=== PATIENT | female | born 1995 | race African-American/Black ===

== ENCOUNTER → 2019-09-25 | Emergency (ER) | payer SELFPAY ==
[~2019-09-25] VITALS: Ht 165.1 cm; Wt 81.8 kg
[~2019-09-25] MED LIST: ANTIBIOTIC; IBUPROFEN600 MG PO; NIFEDIPINE ER60 MG PO; NORMODYNE / TR100 MG PO; ONDANSETRON4 MG/2 M3 PO; PERCOCET 5-3251 TAB PO; PHENERGAN25 M1 PO; PRENATAL COMPLE1 TAB PO
[2019-09-25 15:16] VITALS: BP 114/76; Ht 165.1 cm; Wt 81.8 kg
[2019-09-25 15:42] LABS: BASOPHILS 0.3 % (0-2); EOSINOPHILS 1.3 % (0-7); HEMATOCRIT 33.2 % (36.0-48.0); HEMOGLOBIN 11.5 g/dL (12-16); IMMATURE GRANULOCYTES 0.6 % (0-5); LYMPHOCYTES 28.5 % (15-50); MCH 28.9 pg (26.0-34.0); MCHC 34.6 g/dL (31.0-37.0); MCV 83.4 fL (80.0-100.0); MEAN PLATELET VOLUME 10.5 fL (7.4-10.4); MONOCYTES 8.7 % (2-11); NEUTROPHILS 60.6 % (40-80); PLATELET COUNT 269 10x3/uL (130-400); RBC 3.98 10x6/uL (4.00-5.40); RDW 13.4 % (11.5-14.5); WBC 6.3 10x3/uL (4.8-10.8)
[2019-09-25 16:10] LABS: APPEARANCE CLEAR (CLEAR); BILIRUBIN NEGATIVE (NEGATIVE); CALC OSMOLALITY 274 mosm/kg (275-300); CALCIUM 8.5 mg/dL (8.5-10.1); CHLORIDE - SERUM 103 mmol/L (98-107); COLOR YELLOW (YELLOW); CREATININE - SERUM 0.6 mg/dL (0.6-1.3); GLUCOSE NEGATIVE (NEGATIVE); KETONE NEGATIVE (NEGATIVE); NITRITE NEGATIVE (NEGATIVE); POTASSIUM - SERUM 3.8 mmol/L (3.5-5.1); PROTEIN NEGATIVE (NEGATIVE); SODIUM 140 mmol/L (136-145); UREA NITROGEN 6 mg/dL (7-18); UROBILINOGEN NORMAL (NORMAL); eGFR NON AFRICAN AMERICAN > 90 mL/min (90-120)
[2019-09-25 16:11] LABS: BACTERIA MANY /hpf (NEGATIVE); EPITHELIAL CELLS 0-5 /hpf (0-5); GLUCOSE 67 mg/dL (74-106); RED CELLS - URINE 0-5 /hpf (0-5); WHITE CELLS - URINE 0-5 /hpf (NEGATIVE)
[2019-09-25 16:37] LABS: ALKALINE PHOSPHATASE 103 U/L (46-116); ALT (SGPT) 12 U/L (10-68); BILIRUBIN - TOTAL 0.68 mg/dL (0.2-1.3); HCG - QUANTITATIVE (MATERNAL) 8985 mIU/mL; PROTEIN - SERUM 6.7 g/dL (6.4-8.2)
== END | disposition home or self-care (01) ==
LOC: D.ER 15:02
PROVIDERS: Family Medicine
DX: O26.899 Other specified pregnancy related conditions, unspecified trimester (principal); Z3A.00 Weeks of gestation of pregnancy not specified; I10 Essential (primary) hypertension; R10.2 Pelvic and perineal pain

== ENCOUNTER 2019-12-25 16:52 | Outpatient (CLI) | payer MEDICAID ==
[2019-12-25 17:34] LABS: BASOPHILS 0.1 % (0-2); EOSINOPHILS 0.7 % (0-7); HEMATOCRIT 27.3 % (36.0-48.0); HEMOGLOBIN 8.7 g/dL (12-16); IMMATURE GRANULOCYTES 0.8 % (0-5); LYMPHOCYTES 15.3 % (15-50); MCHC 31.9 g/dL (31.0-37.0); MCV 81.5 fL (80.0-100.0); MEAN PLATELET VOLUME 10.1 fL (7.4-10.4); MONOCYTES 6.9 % (2-11); NEUTROPHILS 76.2 % (40-80); PLATELET COUNT 269 10x3/uL (130-400); RBC 3.35 10x6/uL (4.00-5.40); RDW 12.8 % (11.5-14.5)
[2019-12-25 17:47] LABS: BILIRUBIN NEGATIVE (NEGATIVE); GLUCOSE NEGATIVE (NEGATIVE); KETONE NEGATIVE (NEGATIVE); NITRITE POSITIVE (NEGATIVE); UROBILINOGEN NORMAL (NORMAL)
[2019-12-25 17:51] LABS: UDS - AMPHET NEGATIVE QUAL (NEGATIVE); UDS - BARB NEGATIVE QUAL (NEGATIVE); UDS - BENZO NEGATIVE QUAL (NEGATIVE); UDS - COCAINE NEGATIVE QUAL (NEGATIVE); UDS - OPIATE NEGATIVE QUAL (NEGATIVE); UDS - PCP NEGATIVE QUAL (NEGATIVE); UDS - THC POSITIVE QUAL (NEGATIVE)
[2019-12-25 17:53] LABS: BACTERIA MANY /hpf (NEGATIVE); EPITHELIAL CELLS 0-5 /hpf (0-5); RED CELLS - URINE 0-5 /hpf (0-5)
--- NOTE | 2019-12-26 12:05 | NUR ---
NEW ORDERS FROM DR NAVARRETE AFTER SHE ROUNDS. PT TO RECEIVE NEXT DOSE OF ROCEPHINE AT 1800 THEN POSSIBLE DISCHARGE WITH SCRIPT FOR KEFLEX, PATIENT NEEDS ONE WEEK FOLLOW UP AT CLINIC.
== END 2019-12-26 20:20 | disposition home or self-care (01) ==
LOC: D.LDO 16:52 → D.LD 18:47 → D.LDO 12-26 20:20
PROVIDERS: ATTEND Student in an Organized Health Care Education/Training Program
DX: O26.899 Other specified pregnancy related conditions, unspecified trimester (principal); R10.9 Unspecified abdominal pain

== ENCOUNTER → 2020-01-13 12:21 | Outpatient (CLI) | payer MEDICAID ==
[2020-01-13 13:31] LABS: BILIRUBIN 2+ (NEGATIVE); GLUCOSE NEGATIVE (NEGATIVE); KETONE NEGATIVE (NEGATIVE); NITRITE NEGATIVE (NEGATIVE); SPECIFIC GRAVITY 1.015 (1.005-1.020); UROBILINOGEN 4 mg/dL (NORMAL)
[2020-01-13 13:33] LABS: BACTERIA MANY /hpf (NEGATIVE); EPITHELIAL CELLS 0-5 /hpf (0-5); WHITE CELLS - URINE 25-50 /hpf (NEGATIVE)
[2020-01-13 13:40] LABS: UDS - AMPHET NEGATIVE QUAL (NEGATIVE); UDS - BARB NEGATIVE QUAL (NEGATIVE); UDS - BENZO NEGATIVE QUAL (NEGATIVE); UDS - COCAINE NEGATIVE QUAL (NEGATIVE); UDS - OPIATE NEGATIVE QUAL (NEGATIVE); UDS - PCP NEGATIVE QUAL (NEGATIVE); UDS - THC NEGATIVE QUAL (NEGATIVE)
== END | disposition home or self-care (01) ==
LOC: D.LDO 12:21
PROVIDERS: ATTEND Obstetrics & Gynecology
DX: O26.893 Other specified pregnancy related conditions, third trimester (principal); Z3A.36 36 weeks gestation of pregnancy; M54.5 Low back pain; R10.9 Unspecified abdominal pain

== ENCOUNTER 2020-01-23 14:55 | Inpatient (IN) | payer MEDICAID ==
[2020-01-23] VITALS (7 sets, daily range): BP systolic 148–180; BP diastolic 79–94; Ht 165.1 cm; Wt 78.9 kg
[~2020-01-23] VITALS: Ht 165.1 cm; Wt 78.9 kg
[2020-01-23 15:43] LABS: BASOPHILS 0.2 % (0-2); EOSINOPHILS 2.6 % (0-7); HEMATOCRIT 33.5 % (36.0-48.0); HEMOGLOBIN 10.6 g/dL (12-16); IMMATURE GRANULOCYTES 0.4 % (0-5); LYMPHOCYTES 16.7 % (15-50); MCH 25.2 pg (26.0-34.0); MCHC 31.6 g/dL (31.0-37.0); MCV 79.6 fL (80.0-100.0); MEAN PLATELET VOLUME 10.6 fL (7.4-10.4); MONOCYTES 5.8 % (2-11); NEUTROPHILS 74.3 % (40-80); PLATELET COUNT 308 10x3/uL (130-400); RBC 4.21 10x6/uL (4.00-5.40); RDW 14.5 % (11.5-14.5)
[2020-01-23 16:18] LABS: CALC OSMOLALITY 264 mosm/kg (275-300); CALCIUM 8.8 mg/dL (8.5-10.1); CHLORIDE - SERUM 102 mmol/L (98-107); CREATININE - SERUM 0.9 mg/dL (0.6-1.3); POTASSIUM - SERUM 3.9 mmol/L (3.5-5.1); SODIUM 135 mmol/L (136-145); UREA NITROGEN 5 mg/dL (7-18); eGFR NON AFRICAN AMERICAN 81 mL/min (90-120)
[2020-01-23 16:22] LABS: GLUCOSE 70 mg/dL (74-106)
[2020-01-23 16:24] LABS: ALBUMIN 2.3 g/dL (3.4-5.0); ALKALINE PHOSPHATASE 410 U/L (30-120); ALT (SGPT) 27 U/L (10-68); URIC ACID 4.5 mg/dL (2.6-7.2)
[2020-01-23 16:25] LABS: BILIRUBIN NEGATIVE (NEGATIVE); GLUCOSE NEGATIVE (NEGATIVE); KETONE NEGATIVE (NEGATIVE); NITRITE NEGATIVE (NEGATIVE); UROBILINOGEN NORMAL (NORMAL); WHITE CELLS - URINE >50 /hpf (NEGATIVE)
[2020-01-23 16:26] LABS: BACTERIA MANY /hpf (NEGATIVE); EPITHELIAL CELLS 0-5 /hpf (0-5); RED CELLS - URINE 0-5 /hpf (0-5)
[2020-01-23 16:47] LABS: UDS - AMPHET NEGATIVE QUAL (NEGATIVE); UDS - BARB NEGATIVE QUAL (NEGATIVE); UDS - BENZO NEGATIVE QUAL (NEGATIVE); UDS - COCAINE NEGATIVE QUAL (NEGATIVE); UDS - OPIATE NEGATIVE QUAL (NEGATIVE); UDS - PCP NEGATIVE QUAL (NEGATIVE); UDS - THC NEGATIVE QUAL (NEGATIVE)
--- NOTE | 2020-01-23 16:57 | NUR ---
BABY GIRL @ 1706 PLACENTA @ 1700
--- NOTE | 2020-01-23 18:25 | NUR ---
PT RECEIVED VIA BED TO ROOM 1274 FROM PACU. PT AAOx3, STATES SHE IS STARTING TO HURT, RATES PAIN 7/10. BP NOTED TO BE ELEVATED. FF, ML, U/1. MOD RUBRA LOCHIA, NO CLOTS EXPELLED WITH FUNDAL MASSAGE. ABD DRSG IS C/D/I. PACKER CATH DRAINING DARK YELLOW URINE TO BEDSIDE DRAINAGE, 60ML EMPTIED FROM UROMETER. SCD'S ON LE BILAT. PITOCIN INFUSING ORDERED TO RIGHT FOREARM PIV, IV SITE C/D/I. ICE PACK APPLIED TO ABD INCISION PER ORDER. SURGERY PILLOW AND INCENTIVE SPIROMETER PROVIDED, WILL INSTRUCT ON USE WHEN PAIN IS BETTER CONTROLLED. WILL ADMIN SCHEDULED TORADOL ORDERED AND REEVAL PAIN. SRUx2, CL IN REACH. SIG OTHER ON BEDSIDE COUCH. PT ASKING FOR INFANT, WILL NOTIFY VERONIQUE.
--- NOTE | 2020-01-23 18:50 | NUR ---
DR SALDANA PHONED AND NOTIFIED OF PT'S BP'S WITH PAIN LEVEL, AND SCHEDULED TORADOL GIVEN. DR SALDANA ALSO NOTIFIED OF PT'S POSITIVE TRICH IN URINE. ORDER RECEIVED TO CONT TO MONITOR BP'S AND REEVALUATE PAIN LEVEL. ORDER ALSO RECEIVED FOR 500MG FLAGYL TID IVPB. WILL PROCEED ORDERED.
--- NOTE | 2020-01-23 19:15 | NUR ---
pt rec'd alert and oriented, in bed holding baby, rating pain 9/10, noted elevated bps, pt concerned about pain med making her drowsy, requested pt take pain med to assist w/ normalizing blood pressure. pt agrees, fudal massage u/-1, lochia small, fundus firm midline, giles draining dark concentrated urine, uro chamber emptied to begin monitoring out put for this shift. baljinder pads changed.
--- NOTE | 2020-01-23 21:10 | NUR ---
call to dr avalos regarding pt c/o itching and rating pain 6-7 and time still left before she can be remedicated. orders rec'd and put in for pharmacy.
--- NOTE | 2020-01-23 21:10 | NUR ---
fundus firm, u/2, lochia scant, c/o itching and rating pain 6-7. will call dr avalos for orders
--- NOTE | 2020-01-23 22:50 | NUR ---
RESTING QUIETLY, FEELING RELIEF FROM ITCHING, NO NEEDS VOICED AT THIS TIME
[2020-01-24] VITALS (12 sets, daily range): BP systolic 121–158; BP diastolic 71–88
--- NOTE | 2020-01-24 00:30 | NUR ---
ROOM CHECK, RESTING QUIETLY, RESPIRATIONS EVEN AND UNLABORED, NO SIGNS OF DISTRES, DID NOT DISTURB
--- NOTE | 2020-01-24 02:30 | NUR ---
CADENCE CARE GIVEN, PADS CHANGED, FUNDUS FIRM, LOCHIA SCANT
--- NOTE | 2020-01-24 06:06 | NUR ---
sitting up . denies pain, uop appearance improved from concentrated orange in color to clear yellow informed we will remove her giles when done .
--- NOTE | 2020-01-24 06:30 | NUR ---
PACKER D/C'D W/ 20ML LEFT IN URO CHAMBER. TOLERATED WELL, IV SITE CONVERTED TO SL. NO NEEDS VOICED
--- NOTE | 2020-01-24 06:49 | NUR ---
REPORT GIVEN TO DR NAVARRETE REGARDING URINE OUTPUT MEETS 50ML HR TOTAL BUT NOT MUCH MORE. ORDERS REC'D TO BOLUS 500ML LR NOW, BOLUS STARTED
[2020-01-24 06:58] LABS: BASOPHILS 0.1 % (0-2); EOSINOPHILS 1.8 % (0-7); HEMATOCRIT 28.5 % (36.0-48.0); IMMATURE GRANULOCYTES 0.4 % (0-5); LYMPHOCYTES 16.6 % (15-50); MCH 24.8 pg (26.0-34.0); MCHC 31.6 g/dL (31.0-37.0); MCV 78.5 fL (80.0-100.0); MEAN PLATELET VOLUME 10.5 fL (7.4-10.4); MONOCYTES 4.9 % (2-11); NEUTROPHILS 76.2 % (40-80); PLATELET COUNT 257 10x3/uL (130-400); RBC 3.63 10x6/uL (4.00-5.40); RDW 14.3 % (11.5-14.5); WBC 9.4 10x3/uL (4.8-10.8)
--- NOTE | 2020-01-24 07:10 | NUR ---
DR NAVARRETE TO ROOM.
--- NOTE | 2020-01-24 07:20 | NUR ---
RECEIVED PT IN SEMI-DENNISON'S POSITION. AWAKE. AAO X 3. VSS. HRRR WITHOUT AUDIBLE MURMUR. BBS CLEAR. BS X 4. ABDOMEN SOFT/NON-DISTENDED. FUNDUS FIRM AT U/U. RUBRA LOCHIA SCANT AMT. ABDOMINAL DRESSING DRY WITHOUT DRAINAGE NOTED. NEG HOMANS' SIGN. PPP. NO EDMEA NOTED TO BLE. SCDS ON BLE. PUMP ON. PT DUE TO VOID. DENIES URGE TO VOID AT THIS TIME. PIV SITE CLEAR TO RIGHT FOREARM. NS WITH PITOCIN INFUSING AT 125 ML/HR. PERICARE DONE. PT DENIES PAIN. STATES PASSING GAS. FRESH ICE WATER PROVIDED TO PT. SR UP X 2. CALL LIGHT IN REACH.
--- NOTE | 2020-01-24 07:33 | NUR ---
FLAGYL UP AT THIS TIME. PT INSTRUCTED ON MED AND PURPOSE. PT ALSO INSTRUCTED THAT SO NEEDS TREATMENT. PT VERBALIZES UNDERSTANDING.
[2020-01-24 08:10] LABS: RAPID PLASMA REAGIN Non Reactive (Non Reactive)
--- NOTE | 2020-01-24 08:30 | NUR ---
PT SITTING UP IN BED. TALKING ON PHONE. DENIES C/O OR NEEDS.
--- NOTE | 2020-01-24 11:13 | NUR ---
PT ASSISTED WITH INFANT. PT DENIES NEEDS OR C/O.
--- NOTE | 2020-01-24 11:36 | NUR ---
RECEIVED PT FROM VIA BED TO ROOM 1278. BED LOCKED AND PLACED IN LOW POSITION. PT ASLEEP. WAKES UPON VERBAL STIMULATION. VSS. O2 ON PER N/C AT 2 LITERS. PIV SITE CLEAR TO LEFT FOREARM. LR INFUSING AT 125 ML/HR. HRRR WITHOUT AUDIBLE MURMUR. BBS CLEAR. BS NOT ACTIVE AT THIS TIME. ABDOMEN SOFT. 3 LAP INCISIONS WITHOUT DRAINAGE, REDNESS OR SWELLING NOTED. ABDOMINAL DRESSING DRY WITHOUT DRAINAGE NOTED. NO VAGINAL DISCHARGE NOTED. NEG HOMANS' SIGN. PPP. MILD NON-PITTING EDEMA NOTED TO BLE. PACKER TO GRAVITY DRAINING CLEAR, YELLOW URINE. ICE PACK TO INCISION. PT ORIENTED TO ROOM, BED, AND CALL LIGHT. SR UPX 2. CALL LIGHT IN REACH.
--- NOTE | 2020-01-24 12:00 | NUR ---
PT OOB AND AMB TO BR TO VOID. VOIDS 350 ML OF BLOOD-TINGED URINE. PERICARE DONE. PAD AND PANTIES ON. GOWN CHANGED. BED LINENS CHANGED. PT C/O CRAMPING. DECLINES PAIN MED AT THIS TIME. PT AMBULATES IN ROOM PER REQUEST.
--- NOTE | 2020-01-24 13:14 | NUR ---
VSS. PT C/O INCISIONAL PAIN OF "8" ON 0-10 PAIN SCALE. PT GIVEN PERCOCET 5/325 PER PT REQUEST. PT INSTRUCTED ON MED. VERBALIZES UNDERSTANDING.
--- NOTE | 2020-01-24 16:54 | NUR ---
PT TEARFUL. C/O INCISIONAL PAIN/CRAMPING OF "9" ON 0-10 PAIN SCALE. PERCOCET 10/325 GIVEN PO ORDERED. PT INSTRUCTED ON MED. VERBALIZES UNDERSTANDING.
--- NOTE | 2020-01-24 18:14 | NUR ---
PT SITTING UP IN BED. EYES CLOSED. WAKES UPON ENTERING ROOM. STATES FEELING MUCH BETTER. PT OOB AN AMB TO BR TO SHOWER. LINENS AND TOILETRIES PROVIDED.
--- NOTE | 2020-01-24 18:31 | NUR ---
PT AMBULATORY IN HALLS. MODE ACTIVITY WELL. DENIES C/O. REQUESTS AND RECEIVES RANCH DRESSING.
--- NOTE | 2020-01-24 19:00 | NUR ---
REPORT RECEIVED FROM IRVING ALEXANDER.
--- NOTE | 2020-01-24 19:36 | NUR ---
PATIENT SITTING UP IN BED HOLDING INFANT. ASSESSMENT AND VITAL SIGNS DONE. RESPIRATIONS AT EASE. LUNG SOUNDS CLEAR IN ALL DINERO. HEART REGULAR RATE AND RHYTHM. ABDOMEN SOFT, TENDER. BOWEL SOUNDS PRESENT X ALL QUADRANTS. LOWER UTERINE TRANSVERSE INCISION NOTED. INCISION INTACT. NO REDNESS, EDEMA, OR DRAINAGE NOTED. FUNDUS FIRM, 2 BELOW UMBILICUS, AND MIDLINE. SCANT AMOUNT OF LOCHIA NOTED ON CADENCE PAD. NO EDEMA NOTED TO EXTREMITIES. PATIENT EDUCATED ON COUGHING AND DEEP BREATHING. PATIENT ALSO EDUCATED ON USE OF INCENTIVE SPIROMETER. PATIENT DEMONSTRATED KNOWLEDGE OF USE. DENIES ANY FURTHER QUESTIONS OR CONCERNS. PATIENT STATES PAIN LEVEL 2 OUT OF 10 AT THIS TIME. WILL CONTINUE TO MONITOR. BED IN LOWEST POSITION, SIDE RAILS UP X 2, C/L AND WATER WITHIN REACH.
--- NOTE | 2020-01-24 21:22 | NUR ---
PATIENT SITTING UP IN BED WATCHING TV. DENIES PAIN AT THIS TIME. DENIES ANY NEEDS. BED IN LOWEST POSITION, SIDE RAILS UP X 2, C/L AND WATER WITHIN REACH.
--- NOTE | 2020-01-24 23:12 | NUR ---
PATIENT SITTING UP IN BED FEEDING INFANT. STATES PAIN 8 OUT OF 10. PRN PERCOCET 10/325 ADMINISTERED PO. PATIENT DENIES ANY FURTHER NEEDS. BED IN LOWEST POSITION, SODE RAILS UP X 2, C/L AND WATER WITHIN REACH.
--- NOTE | 2020-01-25 01:00 | NUR ---
PATIENT SITTING UP IN BED. STATES PAIN 2 OUT OF 10. DENIES ANY NEEDS AT THIS TIME. BED IN LOWEST POSITION, SIDE RAILS UP X 2, C/L AND WATER WITHIN REACH.
--- NOTE | 2020-01-25 03:00 | NUR ---
PATIENT SITTING UP IN BED EATING A SNACK. PATIENT STATES PAIN 2 OUT OF 10. DENIES ANY NEEDS AT THIS TIME. BED IN LOWEST POSITION, SIDE RAILS UP X 2, C/L AND WATER WITHIN REACH.
[2020-01-25 04:18] VITALS: BP 132/93
--- NOTE | 2020-01-25 04:18 | NUR ---
PATIENT SITTING UP IN BED HOLDING INFANT. STATES PAIN 6 OUT OF 10. VITAL SIGNS DONE. DENIES FURTHER NEEDS. BED IN LOWEST POSTION, SIDE RAILS UP X 2, C/L AND WATER WITHIN REACH.
--- NOTE | 2020-01-25 04:22 | NUR ---
PERCOCET 10/325 ADMINISTER PO AT THIS TIME.
--- NOTE | 2020-01-25 06:00 | NUR ---
PATIENT LYING QUIETLY IN BED WITH EYES CLOSED. RESPIRATIONS AT EASE. BED IN LOWEST POSTION, SIDE RAILS UP X 2, C/L AND WATER WITHIN REACH.
--- NOTE | 2020-01-25 07:10 | NUR ---
PT SIG OTHER TO NURSES STATION STATING PT IS REQUESTING APPLE JUICE. WILL PROVIDE REQUESTED.
[2020-01-25 08:47] VITALS: BP 133/88
--- NOTE | 2020-01-25 08:47 | NUR ---
THIS RN TO ROOM FOR SHIFT ASSESSMENT. APPLE JUICE GIVEN, EDYTARY RN HAD ALSO PROVIDED JUICE TO PT. PT RESTING WITH EYES CLOSED, SUPINE WITH RIGHT TILT, HOB 45 DEGREES. PT ALERTS TO VOICE. PT DENIES PAIN AT REST, STATES IT'S "NOT TOO BAD, ABOUT A 5" WHEN SHE IS UP TO BR. PT DENIES NEED FOR PAIN MED OR INTERVENTION. PT STATES SHE GOT UP TO VOID THIS AM AND URINE IS STILL IN CONTAINED IN BR. 850ML DARK YELLOW URINE NOTED IN CONTAINER. SHIFT ASSESSMENT COMPLETED, VSS, WILL ADMIN PROCARDIA ORDERED, SEE EMAR. FF, ML, U/2. SMALL RUBRA LOCHIA, NO CLOTS. PT INSTRUCTED ON S/S TO REPORT, UNDERSTANDING VERBALIZED. PT DENIES HEAVY LOCHIA OR CLOTS DURING NIGHT. ABD INCISION IS C/D/I WITH DERMABOND. DTR'S WNL, 2+. GENERALIZED LE EDEMA, NON-PITTING. RIGHT FOREARM PIV REMOVED NO LONGER INDICATED. D/C PLAN DISCUSSED. PT DENIES NEEDS OR QUESTIONS. SRUx2, CL IN REACH. WILL CONT TO MONITOR.
--- NOTE | 2020-01-25 10:15 | NUR ---
THIS RN TO ROOM FOR PT CHECK. PT SITTING UP IN BED, INFANT ON RIGHT BREAST. PT DENIES PAIN OR ANY NEEDS. SRUx2, CL IN REACH. SIG OTHER ON BEDSIDE COUCH. WILL CONT TO MONITOR.
--- NOTE | 2020-01-25 12:05 | NUR ---
THIS RN TO ROOM FOR PT CHECK. PT LYING IN BED, SUPINE, RESTING WITH EYES CLOSED, RESP EVEN AND UNLABORED. PT ALERTS TO VOICE DENIES PAIN OR ANY NEEDS. PT LEFT UNDISTURNED FOR REST. SRUx2, CL IN REACH.
[2020-01-25 13:14] VITALS: BP 137/89
--- NOTE | 2020-01-25 13:18 | NUR ---
THIS RN TO ROOM FOR VS AND PT CHECK. PT C/O PAIN RATED 8/10 AT INCISION, REQUESTING PAIN MED. PT ADMIN PERCOCET 10 ORDERED, SEE EMAR FOR DOC. PT PROVIDED WITH APPLE JUICE, PADS AND PANTIES PER REQUEST. STATES SHE HAS BEEN VOIDING IN CONTAINER FOR MEASURING AGAIN TODAY, APPROX 800ML NOTED IN CONTAINER AND EMPTIED. PT DENIES ANY HEAVY LOCHIA OR CLOTS TODAY. D/C TO HOME DISCUSSED, PT STATES SHE IS READY TO GO HOME WHEN POSSIBLE. SRUx2, CL IN REACH. WILL AWAIT NURSERY TO VERIFY D/C TO HOME FOR .
[2020-01-25] MEDS ORDERED: PERCOCET 5-3251 TAB PO (13:36)
[2020-01-25] MEDS ORDERED: PROCARDIA XL60 MG PO (13:37)
--- NOTE | 2020-01-25 15:25 | NUR ---
THIS RN TO ROOM FOR PAIN REASSESSMENT AND D/C TEACHING. PT REPORTS DECREASE IN PAIN. DISCHARGE TEACHING DONE, WELL WRITTEN PRESCRIPTIONS GIVEN PROVIDED BY DR NAVARRETE. PT VERBALIZES UNDERSTANDING AND DENIES QUESTIONS. SIGNS CHART COPIES OF INSTRUCTIONS. NURSERY NOTIFIED PT READY FOR D/C INSTRUCTIONS ON .
--- NOTE | 2020-01-25 16:30 | NUR ---
PT TAKEN OUT TO PRIVATE VEHICLE VIA W/C WITH , SIG OTHER TO DRIVE HOME.
== END 2020-01-25 16:15 | disposition home or self-care (01) | DRG 788 ==
LOC: D.LDO 14:55 → D.LD 15:47
PROVIDERS: Obstetrics & Gynecology; ADMIT Student in an Organized Health Care Education/Training Program; ATTEND Student in an Organized Health Care Education/Training Program
PROC: 10D00Z1 Extraction of Products of Conception, Low, Open Approach (ICD-10-PCS; principal; 2020-01-23 14:45)
DX: O34.219 Maternal care for unspecified type scar from previous cesarean delivery (principal); Z3A.38 38 weeks gestation of pregnancy; Z37.0 Single live birth; O16.4 Unspecified maternal hypertension, complicating childbirth

== ENCOUNTER → 2020-02-01 11:57 | Outpatient (CLI) | payer MEDICAID ==
[2020-01-23 16:00] VITALS: BMI 29.0
[~2020-02-01 11:57] MED LIST changes: +PROCARDIA XL60 MG PO
== END | disposition home or self-care (01) ==
LOC: D.CT 11:57
PROVIDERS: ATTEND Student in an Organized Health Care Education/Training Program
DX: T81.89XA Other complications of procedures, not elsewhere classified, initial encounter (principal)